=== PATIENT | female | born 1975 | race Caucasian/White ===

== ENCOUNTER 2018-01-18 05:32 | Day surgery (SDC) | payer BC, OTHER ==
[~2018-01-18] VITALS: Ht 154.9 cm; Wt 77.1 kg
--- NOTE | ~2018-01-18 | EKG ---
[address] [address] ELECTROCARDIOGRAM REPORT Name: TONE GERARD Room #: 150-7 [facility]#: [id number] Admission: 01/18/18 Attend Phys: Abdullahi Bautista MD Discharge: Date of : 77 Report #: [id number] THIS REPORT FOR: //name// [facility] Test Date: 2018-01-18 Test Time: 09:09:12 Pat Name: TONE GERARD Department: Room: 150 7 Gender: F Steeler: YAKOV : 1975 Requested By: Abdullahi Bautista Order Number: [id number] MD: Gus Gutierrez Measurements Intervals [place] Rate: 56 P: 47 PA: 157 QRS: -21 QRSD: 105 T: 29 QT: 430 QTc: 416 Interpretive Statements Sinus rhythm Borderline left axis deviation Baseline wander in lead(s) I,III,aVL No previous ECG available for comparison Electronically Signed On 01-18-2018 16:25:14 CDT by Gus Gutierrez [email or web address] <ELECTRONICALLY SIGNED> By: Gus Gutierrez MD 01/18/18 1625 [id number] [id number] Gus Gutierrez MD /DELON
--- NOTE | ~2018-01-18 | O ---
[address] [address] OPERATIVE REPORT Name: TONE GERARD Room #: DEP [facility].#: [id number] Admission: 01/18/18 Attend Phys: Abdullahi Bautista MD Discharge: 01/18/18 Date of : 77 Report #: [id number] THIS REPORT FOR: //name// CC: Abdullahi Valverdee Starr DATE OF SERVICE: 01/18/2018 SERVICE: Orthopedics. FACILITY: [facility] SURGEON: Abdullahi Bautista MD BONDING AND COMPOSITE FABRICATOR: Mirian Guzman NP PREOPERATIVE DIAGNOSES: 1. Left hip pain. 2. Left hip impingement. 3. Left hip labral tear. POSTOPERATIVE DIAGNOSES: 1. Left hip pain. 2. Left hip impingement. 3. Left hip labral tear. 4. Labral calcinosis with intra-labral ossification, left hip. 5. Left hip chondromalacia. PROCEDURES: 1. Left hip arthroscopic labral ossification excision with labral repair. 2. Left hip arthroscopic acetabuloplasty. 3. Left hip arthroscopic Cam osteochondroplasty. COMPLICATIONS: None. DRAINS: None. SPECIMENS: None. ANESTHESIA TYPE: General with regional. FINDINGS: 1. Calcification within the labrum, which was dissected free bluntly and excised. 2. Hypertrophic segment of bone adjacent to the labral calcification on the acetabular rim, extending up into the subspine region, treated with [address] [address] OPERATIVE REPORT Name: TONE GERARD Room #: DEP [facility]#: [id number] Admission: 01/18/18 Attend Phys: Abdullahi Bautista MD Discharge: 01/18/18 Date of : 77 Report #: [id number] acetabuloplasty. 3. Labral repair with [place] CinchLock suture anchor x 2. 4. Capsular repair with #2 Vicryl x 3. HISTORY: The patient is a 42-year-old female who is otherwise healthy and has been active with exercise and weight loss program. She had abrupt onset of intense left hip pain earlier this year. We pursued conservative treatment for some time, including injections, medicines, physical therapy, rest, activity modification, but she continued to have significant lifestyle limiting left hip pain. She had presentation as well as imaging that was suggestive of an acute inflammatory process, which was later confirmed arthroscopically with the calcification within the soft tissues as well as inflammation. Preoperative imaging showed findings consistent with impingement with a Ton[place] grade of 1, alpha angle of approximately 60 degrees at the maximum and a small crossover sign and prominent anterior inferior iliac spine. The x-rays also showed ossification within the labrum, which was immature on the initial x-ray. Because she had failed conservative measures, plans were made for surgical treatment. Risks, benefits, alternatives and indications were discussed with her. Risks include but not limited to pain, bleeding, infection, injury to nerves or blood vessels, persistent pain despite surgical intervention, failure of the repair, progression of any preexisting chondral injury, stiffness, need for further surgery as well as complications related to anesthesia such as stroke, heart attack, pulmonary complications, thromboembolic disease and . PROCEDURE IN DETAIL: After left lower extremity was correctly identified in the preoperative holding area as the operative extremity, the patient was taken to the operating room where general anesthesia was induced without complication after a regional nerve block had been performed by the anesthesia team. She was transferred to the operating table. Prophylactic antibiotics were administered at appropriate time. She was padded appropriately and bilateral lower extremities were placed in traction boot. The left hip femoral head and neck junction was mapped out under fluoroscopy to assess the extent of the Cam lesion. She had an alpha angle of approximately 60 degrees at the maximum which was in the anterior to anterolateral position. Left leg was then prepped and draped in standard sterile fashion. Timeout procedure performed. Traction was applied to the left lower extremity and then under fluoroscopic guidance, a standard anterolateral viewing portal was established, followed by mid anterior working portal. Transverse capsulotomy was performed. There was synovitis present within the hip that was noted and debrided. Upon placement of the instrument into the hip through the mid anterior portal, I immediately encountered a firm resistance and this was in fact the calcification within the labrum. I removed 2 pieces approximately 3-4 mm in size and then directly above this on the anterior column of the acetabulum, there was new bone that had formed and had generated a new pincer impingement lesion, which extended up into [address] [address] OPERATIVE REPORT Name: TONE GERARD Room #: DEP [facility] Cassandra#: [id number] Admission: 01/18/18 Attend Phys: Abdullahi Bautista MD Discharge: 01/18/18 Date of : 77 Report #: [id number] the extraarticular region. This was debrided with the minnie and then the acetabular rim was prepared as well for labral re-fixation after the labral ossification had been excised and the labrum dissected free of the acetabular rim. When this was completed, labral repair was completed in a typical fashion with [place] CinchLock suture anchor x 2. Note that the labral tear was directly adjacent to the calcification that was identified within the labrum. Limited chondroplasty was then performed at the chondral labral junction and then traction was let down. Hip was flexed, camera was placed in the peripheral compartment and a Cam osteoplasty was performed in a typical fashion. The transverse capsulotomy was extended down the neck just slightly to fashion more of a T-shaped capsulotomy. I removed the instruments from the hip then, brought x-ray in to assess the extent of the Cam resection. There was some additional bump distally that needed to be completed, so I placed the instruments back in the hip, completed the Cam osteoplasty, took final x-rays, was happy with the appearance of the Cam at that point and then completed the capsule repair with #2 Vicryl x 3 and removed the instruments from the hip after lavaging and then closed the portals in typical fashion. There was no significant inflammation noted in the peripheral compartment prior to wound closure. After wounds were closed, sterile dressing was applied. The patient was awakened from anesthesia and taken to recovery room in stable condition. There were no complications. All counts were recorded as correct. <ELECTRONICALLY SIGNED> By: Abdullahi Bautista MD 01/20/18 0716 [id number] [id number] Abdullahi Bautista MD /nt
[~2018-01-18 05:32] MED LIST: MULTIVITAMINS1 EAC7 PO; SPIRONOLACTONE25 M1 PO; SYEDA 28 TABLE1 EACH PO
[2018-01-18 09:18] LABS: CALCIUM 9.6 mg/dL (8.5-10.1); CREATININE 0.8 mg/dL (0.6-1.0); POTASSIUM 3.8 mmol/L (3.5-5.1)
[2018-01-18 14:09] VITALS: BP 132/77
== END 2018-01-18 14:40 | disposition home or self-care (01) ==
LOC: TBA 05:32 → OR 05:32 → TBA 05:33 → OR 06:44
PROVIDERS: Orthopaedic Surgery Sports Medicine
DX: M25.852 Other specified joint disorders, left hip (principal); S73.192A Other sprain of left hip, initial encounter; M94.252 Chondromalacia, left hip; M61.58 Other ossification of muscle, other site; M24.152 Other articular cartilage disorders, left hip; E11.9 Type 2 diabetes mellitus without complications; Z98.890 Other specified postprocedural states; Z79.899 Other long term (current) drug therapy; Z87.891 Personal history of nicotine dependence; X58.XXXA Exposure to other specified factors, initial encounter; Y93.89 Activity, other specified; Y92.89 Other specified places as the place of occurrence of the external cause; Y99.8 Other external cause status
CPT/HCPCS: 50010; 50101; 50386; 51538; 52304; 52313; 55430; 56524; 56527; 57092; 57103; 62110; 62900; 64043; 65060; 70005